=== PATIENT | female | born 1970 | race Two or more races ===

== ENCOUNTER → 2017-06-09 | Outpatient (CLI) | payer OTHER ==
--- NOTE | 2017-06-09 15:53 | HKNOTE ---
DATE OF SERVICE: 06/09/2017 CHIEF COMPLAINT: Bilateral knee pain. HISTORY OF PRESENT ILLNESS: This is a 47-year-old female complaining of bilateral knee pain. The p ain has been worsening over the last year. She states that the pain is on the inside of her knees. She does not use any assist devices. She has not had any previous treatments. She does not take a ny pain medications. She is able to perform her activities of daily living. She denies any groin o r back pain. GAIT: Nonantalgic gait, reciprocal gait pattern. PHYSICAL EXAMINATION: LEFT KNEE EXAM: Neutral alignment. Tender over the medial joint line, nontender over the lateral j oint line, 0-130 degrees range of motion, stable to varus valgus stress. Negative Nic. Negativ e anterior drawer, negative posterior drawer. RIGHT KNEE EXAM: Neutral alignment. Tender over the medial joint line, nontender over the lateral joint line, 0-130 degrees range of motion, stable to varus valgus stress. Negative Nic. Negati ve anterior drawer, negative posterior drawer.. X-rays, left knee, 3 views, there is joint space narrowing of the medial compartment with bone on doni ne arthritic changes. There is also joint space narrowing of the patellofemoral joint with marginal osteophytes. X-rays right knee, 3 views, there is joint space narrowing of the medial compartment with bone on doni ne arthritic changes. There is also joint space narrowing of the patellofemoral joint with marginal osteophytes. MRI left knee. There is tricompartmental osteoarthritis. There is a degenerative tear of the media l meniscus. IMPRESSION: A 47-year-old female with bilateral knee osteoarthritis. PLAN: We will request authorization for physical therapy. We will also request authorization for l eft knee monolithic injection. She will follow up pending approval. Dictated By: FREDRICK RUSSELL/KAMRAN Conf#: [id number] DID#: [id number]
--- NOTE | 2017-06-09 23:20 | RADRPT ---
PROCEDURE: XR Knees. CLINICAL INDICATION: Bilateral knee pain. TECHNIQUE: Total of eight views. Weightbearing frontal, oblique, and lateral views of the both kn ees. Patellar views of both knees. COMPARISON: No prior study is available for comparison. FINDINGS: There is no fracture or dislocation. The soft tissues are normal. There are degenerative changes with osteophytes arising from all 3 joint compartment margins bilater ally. There is bilateral medial joint compartment narrowing. There is no lytic or blastic lesion. There is no radiopaque foreign body. IMPRESSION: 1. Moderate degenerative changes of both knees predominately involving the medial joint compartment s. RPTAT: QQ .Zhou Mari MD, MD Date Time Electronically viewed and signed by .Zhou Mari MD, MD on 06/09/2017 23:20 .R/
== END | disposition home or self-care (01) ==
LOC: HKI 14:23
PROVIDERS: ATTEND Orthopaedic Surgery Adult Reconstructive Orthopaedic Surgery
DX: M17.0 Bilateral primary osteoarthritis of knee (principal)
CPT/HCPCS: G0463

== ENCOUNTER → 2017-06-20 | Outpatient (CLI) | payer OTHER ==
--- NOTE | 2017-06-21 04:58 | HKNOTE ---
DATE OF SERVICE: 06/20/2017 CHIEF COMPLAINT: Right knee pain. HISTORY OF PRESENT ILLNESS: This is a 47-year-old female complaining of bilateral knee pain. The p ain has been worsening over the last year. She does not use any assistive devices. She has not had any previous treatment. She has x-ray findings of bilateral degenerative changes most prominent in the lateral compartments. She takes ibuprofen for pain control. She is able to perform her activi ties of daily living. She denies any groin or back pain. GAIT: Nonantalgic reciprocal gait pattern. LEFT KNEE EXAMINATION: Neutral alignment. Tender over the medial joint line, nontender over the la teral joint line. Zero to 130 degrees range of motion, stable to varus and valgus stress. Negative Nic, negative anterior drawer, negative posterior drawer, negative Kelli's. RIGHT KNEE EXAMINATION: Neutral alignment. Tender over the medial joint line, nontender over the l ateral joint line. Zero to 130 degrees range of motion, stable to varus and valgus stress. Negativ e Nic, negative anterior drawer, negative posterior drawer, negative Kelli's. IMPRESSION: A 47-year-old female with bilateral knee osteoarthritis. PLAN: After obtaining consent, the left knee was prepped and draped in the usual sterile fashion. An injection of Monovisc was performed through the lateral portal under sterile technique. There we re no complications. The patient tolerated the procedure well. She was instructed to ice and eleva te the left knee. She can continue to be weightbearing as tolerated. She will follow up within 3 [facility] for reevaluation. Dictated By: FREDRICK RUSSELL/KAMRAN Conf#: [id number] DID#: [id number]
== END | disposition home or self-care (01) ==
LOC: HKI 08:34
PROVIDERS: ATTEND Orthopaedic Surgery Adult Reconstructive Orthopaedic Surgery
DX: M17.0 Bilateral primary osteoarthritis of knee (principal)
CPT/HCPCS: 20610; J7327; Z7500; Z7610; G0463